=== PATIENT | female | born 1965 | race Caucasian/White ===

== ENCOUNTER 2023-10-11 05:28 | Day surgery (SDC) | payer OTHER ==
[~2023-10-11] VITALS: Ht 161.3 cm; Wt 75.2 kg
[~2023-10-11 05:28] MED LIST: ESTRACE0.5 MG PO; LEVOXYL0.05 MG PO; PRILOTC; PROZAC 20MG20 MG PO; TOPROL XL 50MG50 MG PO; VITAMIN B COMPL1 T16 PO
[2023-10-11] MEDS ORDERED: LR 1,000 ML IV SCH (06:00)
[2023-10-11] MEDS ORDERED: Ondansetron 4 MG/2 ML VIAL IV PRN (06:00)
[2023-10-11] MEDS ORDERED: PROZAC 20MG20 MG PO (06:07)
[2023-10-11] MEDS ORDERED: TYLENOL 500MG500 MG PO (06:07)
[2023-10-11] MEDS ORDERED: CLARITIN 1010 MG/TAB PO (06:08)
[2023-10-11 06:58] VITALS: BP 130/75; PULSE 68; TEMP 97.9
[2023-10-11] MEDS ORDERED: Lidocaine PF 2% (20 MG/ML) 5 ML VIAL ONE (07:50)
[2023-10-11 08:55] VITALS: BP 136/75; PULSE 77; TEMP 97.4
[2023-10-11 09:10] VITALS: BP 136/78; PULSE 74
--- NOTE | 2023-10-11 09:45 | NUR ---
0850-DR BUTCHER PLACED PHONE CALL TO DAUGHTER TO DISCUSS FINDINGS FROM PROCEDURE. 0855-PT TO BAY 3 PER CART FROM PROCEDURE ROOM. REPORT RECEIVED. VS OBTAINED. CALL LIGHT WITHIN REACH. PT STATES FEELING A LITTLE NAUSEOUS. 0900-ZOFRAN 4 MG IV GIVEN AT THIS TIME. 0910-PT TOLERATING SODA. DENIES ANY NEEDS AT THIS TIME. 0920-IV DC'D AT THIS TIME. 0925-DISCHARGE EDUCATION COMPLETED WITH PT. VERBALIZED UNDERSTANDING OF HOME AND FOLLOW UP CARE. ALL QUESTIONS ANSWERED. DISCHARGE PAPERWORK GIVEN TO PT. PT ABLE TO DRESS SELF WITHOUT ASSISTANCE. 0945-PT OFF UNIT PER WHEELCHAIR. PT DISCHARGED TO HOME WITH DAUGHTER PER PERSONAL VEHICLE.
== END 2023-10-11 09:45 | disposition home or self-care (01) ==
LOC: SDCO 05:28
DX: Z12.11 Encounter for screening for malignant neoplasm of colon (principal); E53.8 Deficiency of other specified B group vitamins; R79.89 Other specified abnormal findings of blood chemistry; E78.5 Hyperlipidemia, unspecified; E07.9 Disorder of thyroid, unspecified; F41.1 Generalized anxiety disorder; F51.01 Primary insomnia; F43.21 Adjustment disorder with depressed mood; B07.9 Viral wart, unspecified; G47.00 Insomnia, unspecified; F51.11 Primary hypersomnia; Z80.0 Family history of malignant neoplasm of digestive organs; Z86.010 Personal history of colon polyps; Z79.890 Hormone replacement therapy; Z79.899 Other long term (current) drug therapy
CPT/HCPCS: J2405; J2704; J7120

== ENCOUNTER 2024-04-26 12:34 | Emergency (ER) | payer OTHER ==
[~2024-04-26] VITALS: Ht 162.6 cm; Wt 75.0 kg
[~2024-04-26 12:34] MED LIST changes: +CLARITIN 1010 MG/TAB PO; +TYLENOL 500MG500 MG PO
[2024-04-26 12:35] VITALS: TEMP 98.5
[2024-04-26] MEDS ORDERED: LR 1,000 ML IV ONE (12:45)
[2024-04-26] MEDS ORDERED: Morphine 4 MG/ML VIAL IV ONE (12:45)
[2024-04-26] MEDS ORDERED: Ondansetron 4 MG/2 ML VIAL IV ONE (12:45)
[2024-04-26 12:50] LABS: BASO # 0.1 K/mm3 (0.0-0.2); BASO % 0.8 % (0.0-2.0); EOS # 0.3 K/mm3 (0.0-0.7); EOS % 4.1 % (0.0-4.0); GRAN # 4.6 K/mm3 (1.4-6.5); GRAN % 59.4 % (42.2-75.2); HEMATOCRIT 39.1 % (37.0-47.0); HEMOGLOBIN 13.6 g/dl (12.5-16.0); LYMPH # 2.3 K/mm3 (1.2-3.4); LYMPH % 30.6 % (20.0-51.0); MEAN CELL VOLUME 88 fl (80.0-100.0); MEAN CORPUSCULAR HEMOGLOBIN 31 pg (27-31); MEAN CORPUSCULAR HGB CONC 35 g/dl (33.0-37.0); MEAN PLATELET VOLUME 10.7 fl (7.4-10.4); MONO # 0.4 K/mm3 (0.1-0.6); MONO % 4.8 % (1.7-9.3); PLATELET COUNT 271 K/mm3 (130-400); RED BLOOD COUNT 4.44 M/mm3 (4.10-5.30); REDCELL DISTRIBUTION WIDTH-CV 11.8 % (11.5-14.5)
[2024-04-26 13:21] LABS: ALBUMIN 4.2 g/dL (3.5-5.0); BILIRUBIN,TOTAL 0.4 mg/dL (0.2-1.2); C-REACTIVE PROTEIN 0.27 mg/dL (0.00-0.50); CALCIUM 9.7 mg/dL (8.4-10.2); CREATININE, serum 0.9 mg/dL (0.57-1.11); POTASSIUM 3.8 mEq/L (3.5-4.5); TOTAL PROTEIN 7.5 g/dl (6.2-8.1)
[2024-04-26] MEDS ORDERED: Iohexol 300 - 100 ML VIAL IV ONE (13:25)
[2024-04-26] MEDS ORDERED: NS 100 ML IV ONE (13:25)
[2024-04-26 13:56] LABS: URINE APPEARANCE CLOUDY (CLEAR/HAZY); URINE BLOOD 3+ (NEGATIVE); URINE COLOR ORANGE (YELLOW); URINE GLUCOSE NEGATIVE (NEGATIVE); URINE KETONE TRACE (NEGATIVE); URINE NITRATE NEGATIVE (NEGATIVE); URINE PROTEIN(semi-quant) 2+ (NEGATIVE)
[2024-04-26 14:05] LABS: COLLECTION METHOD CLEAN CATCH; SQUAMOUS EPITHELIAL 0-2 /hpf (0-10); URINE RBC >50 /hpf (0-2)
[2024-04-26] MEDS ORDERED: NORCO 325 MG-51 TAB PO (14:09)
[2024-04-26] MEDS ORDERED: CEFTIN 250250 MG/TAB PO (14:09)
[2024-04-26 14:27] VITALS: BP 134/63; PULSE 68
== END 2024-04-26 14:36 | disposition home or self-care (01) ==
LOC: COL.ER 12:34
PROVIDERS: Family Medicine
DX: N13.2 Hydronephrosis with renal and ureteral calculous obstruction (principal); F17.210 Nicotine dependence, cigarettes, uncomplicated
CPT/HCPCS: J2270; J2405; J7120; Q9967